=== PATIENT | male | born 1985 | race Two or more races ===

== ENCOUNTER 2023-09-03 13:17 | Emergency (ER) | payer OTHER ==
[~2023-09-03] VITALS: Ht 167.6 cm; Wt 79.4 kg
[2023-09-03] MEDS ORDERED: TETANUS & DIPHTHERIA TOX,ADULT 0.5 ML VIAL IM ONE (15:45)
== END 2023-09-03 15:42 | disposition home or self-care (01) ==
LOC: ER 13:17
DX: S91.321A Laceration with foreign body, right foot, initial encounter (principal); W45.8XXA Other foreign body or object entering through skin, initial encounter; Y93.89 Activity, other specified; Y92.89 Other specified places as the place of occurrence of the external cause